=== PATIENT | female | born 1970 | race Caucasian/White ===

== ENCOUNTER 2017-08-28 16:55 | Emergency (ER) | payer BC, OTHER ==
[~2017-08-28] VITALS: Ht 154.9 cm; Wt 44.5 kg
[2017-08-28] MEDS ORDERED: TYLENOL WITH CODEINE PO (17:12)
[2017-08-28] MEDS ORDERED: AMLO5TAB2 PO (17:12)
[2017-08-28 18:18] LABS: BASOPHILS # (AUTO) 0.1 K/uL (0.0-8.0); BASOPHILS % (AUTO) 0.8 % (0.0-2.0); EOSINOPHILS # (AUTO) 0.2 K/uL (0.0-0.7); EOSINOPHILS % (AUTO) 2.6 % (0.0-7.0); HEMOGLOBIN 14.4 G/DL (12.0-16.0); LYMPHOCYTES # (AUTO) 2.9 K/UL (0.8-4.8); LYMPHOCYTES % (AUTO) 34.3 % (20.5-51.5); MEAN CORPUSCULAR HEMOGLOBIN 30.6 UUG (27.0-31.0); MEAN CORPUSCULAR HGB CONC 33 g/dL (32.0-37.0); MEAN CORPUSCULAR VOLUME 91.8 FL (81.0-99.0); MONOCYTES # (AUTO) 0.5 K/UL (0.1-1.30); MONOCYTES % (AUTO) 6.4 % (0.0-11.0); NEUTROPHILS # (AUTO) 4.8 K/UL (1.8-8.9); NEUTROPHILS % (AUTO) 55.9 % (38.5-71.5); PLATELET COUNT (AUTO) 282 K/UL (150-450); RED BLOOD CELL COUNT(AUTO) 4.69 MIL/UL (4.2-5.4); WHITE BLOOD COUNT (AUTO) 8.5 K/UL (4.0-11.2)
[2017-08-28 18:27] LABS: CREATININE 0.8 mg/dL (0.6-1.3); POTASSIUM 4.1 mmol/L (3.5-5.1)
[2017-08-28 18:55] LABS: BILIRUBIN,DIRECT 0.1 mg/dL (0.0-0.2); BILIRUBIN,TOTAL 0.4 mg/dL (0.2-1.0); TOTAL PROTEIN, SERUM 7.1 g/dL (6.4-8.2)
--- NOTE | 2017-08-28 19:17 | NUR ---
Assumed care of patient. no acute distress noted. All patient needs attended and met. no complaint of headache at this time. Will continue to monitor patient.
--- NOTE | 2017-08-28 19:52 | NUR ---
Patient discharged to home in stable conditon. Written and verbal after care instructions given. Patient verbalizes understanding of instructions. Ambulated from ER with stable gait. All belongings with patient. Peripheral IV removed prior to dischrage. Patient will be driven home in taxi. Ambulated from ER with stable gait.
[2017-08-28 19:59] VITALS: BP 127/80
== END 2017-08-28 20:00 | disposition home or self-care (01) ==
LOC: ER 16:56
DX: I10 Essential (primary) hypertension (principal); R51 Headache
CPT/HCPCS: 36415; 70030-TC; 70450; 71010; 84703; 85025; 93005; A4663

== ENCOUNTER 2018-02-03 19:37 | Emergency (ER) | payer BC, OTHER ==
[~2018-02-03] VITALS: Ht 175.3 cm; Wt 43.1 kg
[~2018-02-03 19:37] MED LIST: AMLO5TAB2 PO; TYLENOL WITH CODEINE PO
--- NOTE | 2018-02-03 20:07 | NUR ---
Patient ambulated to ER, reports was having anxiety attacks from high blood pressure, reports numbness and tingling on extremities.
[2018-02-03] MEDS ORDERED: LORAZEPAM 0.5 MG TABLET PO ONE (21:30)
[2018-02-03] MEDS ORDERED: LORAZEPAM 0.5 MG TABLET ONE (21:33)
--- NOTE | 2018-02-03 21:39 | NUR ---
Patient discharged to home in stable conditon with family and friend taking patient home. Written and verbal after care instructions given. Patient verbalizes understanding of instructions. Walked out of ER with steady gait. No distress noted
[2018-02-03 21:40] VITALS: BP 156/99
== END 2018-02-03 21:41 | disposition home or self-care (01) ==
LOC: ER 19:40
DX: F41.0 Panic disorder [episodic paroxysmal anxiety] (principal); I10 Essential (primary) hypertension; Z79.899 Other long term (current) drug therapy; Z79.891 Long term (current) use of opiate analgesic
CPT/HCPCS: 93005; A4663

== ENCOUNTER 2020-08-23 13:11 | Inpatient (IN) | payer OTHER ==
[~2020-08-23] VITALS: Ht 154.9 cm; Wt 54.4 kg
[~2020-08-23 13:11] MED LIST changes: -AMLO5TAB2 PO; +AMLO5TAB9 PO
[2020-08-23] MEDS ORDERED: IV NORMAL SALINE 1000 ML BAG IV ONE (13:30)
--- NOTE | 2020-08-23 13:30 | NUR ---
patient seen by
[2020-08-23] MEDS ORDERED: SWABABLE VALVE TRANSFER SET EA MC ONE (13:39)
[2020-08-23] MEDS ORDERED: IOHEXOL 300MG/ML 100 ML INFUS..BTL ONE (13:39)
[2020-08-23] MEDS ORDERED: METR500T PO (13:42)
[2020-08-23] MEDS ORDERED: LOSA50TA39 PO (13:42)
[2020-08-23] MEDS ORDERED: HYDR12.55 PO (13:42)
[2020-08-23] MEDS ORDERED: CIPR500T5 PO (13:42)
[2020-08-23] MEDS ORDERED: ONDANSETRON 4 MG/2 ML VIAL IV ONE (13:45)
[2020-08-23] MEDS ORDERED: MORPHINE SULFATE 4 MG/1 ML DISP.SYRIN IV ONE (13:45)
[2020-08-23] MEDS ORDERED: ONDANSETRON 4 MG/2 ML VIAL ONE (13:47)
[2020-08-23] MEDS ORDERED: MORPHINE SULFATE 4 MG/1 ML DISP.SYRIN ONE (13:47)
--- NOTE | 2020-08-23 13:54 | NUR ---
CALLED [facility] FOR [place]SP[place] [facility] [id number], TRIP #[id number].
[2020-08-23 13:57] LABS: BASOPHILS % (AUTO) 0.3 % (0.0-2.0); EOSINOPHILS # (AUTO) 0.1 K/uL (0.0-0.7); EOSINOPHILS % (AUTO) 1.1 % (0.0-7.0); HEMATOCRIT 38.5 % (31.2-41.9); LYMPHOCYTES # (AUTO) 2.5 K/uL (20.0-40.0); LYMPHOCYTES % (AUTO) 18.6 % (20.5-51.5); MEAN CORPUSCULAR HEMOGLOBIN 30.9 uug (24.7-32.8); MEAN CORPUSCULAR HGB CONC 34 g/dL (32.3-35.6); MEAN CORPUSCULAR VOLUME 91.3 fL (75.5-95.3); MONOCYTES % (AUTO) 7.2 % (0.0-11.0); NEUTROPHILS # (AUTO) 9.7 K/uL (1.8-8.9); NEUTROPHILS % (AUTO) 72.8 % (38.5-71.5); PLATELET COUNT (AUTO) 227 K/uL (179-408); RED BLOOD CELL COUNT(AUTO) 4.22 MIL/uL (3.63-4.92); WHITE BLOOD COUNT (AUTO) 13.3 K/uL (3.8-11.8)
[2020-08-23 13:58] LABS: CREATININE 0.9 mg/dL (0.6-1.3); POTASSIUM 3.4 mmol/L (3.5-5.1)
[2020-08-23 14:04] LABS: BILIRUBIN,DIRECT 0.2 mg/dL (0.0-0.2); BILIRUBIN,TOTAL 0.8 mg/dL (0.2-1.0); TOTAL PROTEIN, SERUM 6.7 g/dL (6.4-8.2)
--- NOTE | 2020-08-23 14:15 | NUR ---
[facility] called for admission per Dr. Yeager request. Called M/S floor called for bed assignment.
--- NOTE | 2020-08-23 14:30 | NUR ---
Dr. Yeager spoke with Dr. Arvizu via telephone regarding admission.
[2020-08-23] MEDS ORDERED: PIPERACILLIN SODIUM/TAZOBACTAM 3.375 G in IV DEXTROSE 5% 50 ML IV ONE (14:45)
[2020-08-23] MEDS ORDERED: HYDROMORPHONE 1 MG/1 ML DISP.SYRIN IV ONE ×3 (14:45→18:45)
[2020-08-23] MEDS ORDERED: HYDROMORPHONE 1 MG/1 ML DISP.SYRIN ONE ×2 (14:48→18:44)
[2020-08-23] MEDS ORDERED: PIPERACILLIN/TAZOBACTAM/D5W 50 ML IV ONE (14:53)
--- NOTE | 2020-08-23 16:29 | NUR ---
ambulance services to take pt. to [facility] for CT abd, and pelvis. Report given to Stevenson rosenberg. staff pt's vitals stable.128/68, rr 14 97.8. saturation of 97% on RA. 92HR.
--- NOTE | 2020-08-23 18:19 | NUR ---
patient back from [facility] radiology. pt stable.
--- NOTE | 2020-08-23 19:04 | NUR ---
bedside report given to rn. Marcus all information endorse for continuity of care.
--- NOTE | 2020-08-23 19:10 | NUR ---
Report received from Nely SANTILLAN. Pt is in room at this time, verbalies that the medication is working, but there still is a 3-4/10 pain on her LLQ of abdomen. Pt is being admitted, all belongings noted and accounted for, changed into hospital gown. Kept comfortable in bed with warm blankets. Will monitor until floor is ready to take patient.
--- NOTE | 2020-08-23 19:15 | NUR ---
Called 3rd floor, RN taking patient will call me back after their shift change report.
--- NOTE | 2020-08-23 19:36 | NUR ---
Report given to August SANTILLAN.
[2020-08-23] MEDS ORDERED: MAGNESIUM HYDROXIDE 30 ML LIQUID UDC PO PRN (19:45)
[2020-08-23] MEDS ORDERED: ONDANSETRON 4 MG/2 ML VIAL IV PRN (19:45)
[2020-08-23] MEDS ORDERED: Z GUARD REMEDY PASTE 57 GM TUBE TOP PRN (19:45)
--- NOTE | 2020-08-23 20:00 | NUR ---
Pt was transported by TYRELL Watters via [employer]. Came here for L. lower quadrant abdominal pain. Pt is AAOX4, c/o pain on the left lower quadrant, will assess and check if PRN pain medication is available. Denies any acute distress/SOB. Denies any active bleeding, N/V. Vitals stable on room air. Pt on NPO and will start on Zosyn. LFA IV is intact with D5 1/2 NS running at 125cc. Skin is intact. All belonging with patient. Safety measures in place. Call light within reach. Will continue with the plan of care.
--- NOTE | 2020-08-23 20:00 | NUR ---
Pt transported to Room 302, warm handoff to RN and BANK OPERATIONS OFFICER assigned. Pt in stable condition during transfer and upon arrival. All belongings with patient.
[2020-08-23 20:15] VITALS: BP 131/96
[2020-08-23] MEDS: IV D5 1/2 NS 1000 ML 1,000 ML IV PRN (21:09)
[2020-08-23] MEDS: PIPERACILLIN SODIUM/TAZOBACTAM 3.37 G in IV DEXTROSE 5% 100 ML IV SCH (21:09)
[2020-08-23] MEDS: HYDROCODONE/APAP 5-325MG TABLET PO PRN (23:25)
[2020-08-24] MEDS ORDERED: PIPERACILLIN SODIUM/TAZOBACTAM 3.375 G in IV DEXTROSE 5% 50 ML IV SCH ×2
[2020-08-24] MEDS: MORPHINE SULFATE 2 MG/1 ML DISP.SYRIN IV PRN ×3 (02:56→20:39)
[2020-08-24] MEDS: PIPERACILLIN SODIUM/TAZOBACTAM 3.37 G in IV DEXTROSE 5% 100 ML IV SCH ×3 (05:09→22:04)
[2020-08-24 06:05] LABS: BASOPHILS % (AUTO) 0.3 % (0.0-2.0); EOSINOPHILS # (AUTO) 0.1 K/uL (0.0-0.7); HEMATOCRIT 36.2 % (31.2-41.9); HEMOGLOBIN 12.2 g/dL (10.9-14.3); LYMPHOCYTES # (AUTO) 1.9 K/uL (20.0-40.0); LYMPHOCYTES % (AUTO) 17.6 % (20.5-51.5); MEAN CORPUSCULAR HEMOGLOBIN 30.7 uug (24.7-32.8); MEAN CORPUSCULAR HGB CONC 34 g/dL (32.3-35.6); MONOCYTES % (AUTO) 9.1 % (0.0-11.0); NEUTROPHILS # (AUTO) 7.9 K/uL (1.8-8.9); PLATELET COUNT (AUTO) 205 K/uL (179-408); RED BLOOD CELL COUNT(AUTO) 3.98 MIL/uL (3.63-4.92)
[2020-08-24 06:14] LABS: CREATININE 0.9 mg/dL (0.6-1.3); MAGNESIUM 2.1 mg/dL (1.8-2.4); PHOSPHOROUS 3.4 mg/dL (2.5-4.9); POTASSIUM 3.2 mmol/L (3.5-5.1)
[2020-08-24 06:19] VITALS: BP 120/68
--- NOTE | 2020-08-24 06:25 | NUR ---
Pt slept intermittently through the night. Pt denies any acute distress/SOB. Pt c/o /10 left lower quadrant abdominal pain. Denies any rectal bleeding, N/V. Will give prescribed PRN pain medication. V/S stable on room air. IV intact with Zosyn running at 25cc. Comfort care and needs attended. Pain managed effectively. Safety measures in place. Bed low and locked in position. Call light within reach. Will endorse to the oncoming nurse accordingly.
[2020-08-24 06:26] LABS: THYROID STIMULATING HORMONE 1.129 mIU/mL (0.358-3.740)
[2020-08-24 08:00] VITALS: BP 116/64
[2020-08-24] MEDS: PANTOPRAZOLE SODIUM 40 MG VIAL IV SCH (08:43)
[2020-08-24] MEDS ORDERED: POTASSIUM CHLORIDE 50 ML IV SCH (09:45)
[2020-08-24] MEDS ORDERED: POTASSIUM CHLORIDE 20 MEQ TAB.PRT.SR PO ONE ×2 (10:00)
[2020-08-24] MEDS: IV D5 1/2 NS 1000 ML 1,000 ML IV PRN (11:11)
[2020-08-24 11:44] VITALS: BP 117/78
[2020-08-24] MEDS ORDERED: SIMETHICONE 40 MG/0.6 ML, 30ML BOTTLE PO PRN (14:30)
[2020-08-24] MEDS ORDERED: SIMETHICONE 80 MG TAB.CHEW PO PRN (15:15)
[2020-08-24 15:43] VITALS: BP 138/87
--- NOTE | 2020-08-24 20:00 | NUR ---
Received patient sitting in bed. AAOx4. No s/s of acute distress. Pt is on RA and denies SOB. C/o abd pain, will follow up with available medications. Pt stated they had one instance of rectal bleeding after po medications, will continue to monitor. Left FA IV patent and intact infusing ordered fluids. Safety precautions intact and will continue to monitor.
[2020-08-24 20:06] VITALS: BP 130/92
[2020-08-24] MEDS: HYDROCODONE/APAP 5-325MG TABLET PO PRN (22:15)
[2020-08-25] MEDS: IV D5 1/2 NS 1000 ML 1,000 ML IV PRN (00:30)
[2020-08-25] MEDS: ACETAMINOPHEN 325 MG TABLET PO PRN ×2 (02:24→08:36)
[2020-08-25 04:06] VITALS: BP 134/92
[2020-08-25] MEDS: PIPERACILLIN SODIUM/TAZOBACTAM 3.37 G in IV DEXTROSE 5% 100 ML IV SCH ×2 (06:01→13:02)
[2020-08-25 06:17] LABS: BASOPHILS % (AUTO) 0.3 % (0.0-2.0); EOSINOPHILS # (AUTO) 0.2 K/uL (0.0-0.7); EOSINOPHILS % (AUTO) 2.2 % (0.0-7.0); HEMOGLOBIN 11.7 g/dL (10.9-14.3); LYMPHOCYTES # (AUTO) 2.4 K/uL (20.0-40.0); LYMPHOCYTES % (AUTO) 28.7 % (20.5-51.5); MEAN CORPUSCULAR HEMOGLOBIN 31.1 uug (24.7-32.8); MEAN CORPUSCULAR HGB CONC 34 g/dL (32.3-35.6); MEAN CORPUSCULAR VOLUME 90.8 fL (75.5-95.3); MONOCYTES # (AUTO) 0.7 K/uL (2.0-10.0); MONOCYTES % (AUTO) 8.6 % (0.0-11.0); NEUTROPHILS % (AUTO) 60.2 % (38.5-71.5); PLATELET COUNT (AUTO) 204 K/uL (179-408); RED BLOOD CELL COUNT(AUTO) 3.75 MIL/uL (3.63-4.92); WHITE BLOOD COUNT (AUTO) 8.3 K/uL (3.8-11.8)
[2020-08-25 06:44] LABS: CREATININE 0.9 mg/dL (0.6-1.3); MAGNESIUM 1.9 mg/dL (1.8-2.4); PHOSPHOROUS 3.1 mg/dL (2.5-4.9); POTASSIUM 3.3 mmol/L (3.5-5.1)
[2020-08-25] MEDS: PANTOPRAZOLE SODIUM 40 MG VIAL IV SCH (08:08)
[2020-08-25] MEDS ORDERED: BUTALB/ACETAMINOPHEN/CAFFEINE TABLET PO PRN (10:30)
[2020-08-25] MEDS ORDERED: POTASSIUM CHLORIDE 20 MEQ TAB.PRT.SR PO SCH (10:45)
[2020-08-25 11:37] VITALS: BP 132/94
[2020-08-25 16:00] VITALS: BP 135/90
--- NOTE | 2020-08-25 16:10 | NUR ---
dc orders received noted and carried out,dc heplock per md orders,dc instruction and education given to the pt,pt left the facility in stable condition with her friend in private car
== END 2020-08-25 16:15 | disposition home or self-care (01) | DRG 373 ==
LOC: ER 13:11 → MEDSURG3 19:49
PROVIDERS: ADMIT Student in an Organized Health Care Education/Training Program; ATTEND Student in an Organized Health Care Education/Training Program
DX: A04.9 Bacterial intestinal infection, unspecified (principal); E87.6 Hypokalemia; I10 Essential (primary) hypertension; R31.29 Other microscopic hematuria; F41.9 Anxiety disorder, unspecified
CPT/HCPCS: 36415; 83605; 83735; 84100; 84443; 85025; 85730; 87040; C9113; G0378; J1170; J2270; J2405; J2543; J3490; J7030; J7060; Q9967

== ENCOUNTER 2022-10-03 12:18 | Emergency (ER) | payer BC, OTHER ==
[~2022-10-03] VITALS: Ht 154.9 cm; Wt 54.4 kg
[~2022-10-03 12:18] MED LIST changes: -AMLO5TAB9 PO; +CIPR500T5 PO; +HYDR12.55 PO; +LOSA50TA39 PO; +METR500T PO
--- NOTE | 2022-10-03 12:33 | NUR ---
Patient initially refused to answer questions while still on the certification engineer gurney. Then this patient immediately wanted to go to the bathroom as soon as she was placed in ER bed 2A.
--- NOTE | 2022-10-03 12:38 | NUR ---
Patient is still in the bathroom at this time.
[2022-10-03] MEDS ORDERED: HALOPERIDOL LACTATE 5 MG/1 ML VIAL IV ONE (12:45)
[2022-10-03] MEDS ORDERED: MORPHINE SULFATE 4 MG/1 ML DISP.SYRIN IV ONE (12:45)
[2022-10-03] MEDS ORDERED: HALOPERIDOL LACTATE 5 MG/1 ML VIAL ONE (12:49)
[2022-10-03] MEDS ORDERED: MORPHINE SULFATE 4 MG/1 ML DISP.SYRIN ONE (12:50)
[2022-10-03] MEDS ORDERED: MAGNESIUM CITRATE 296 ML BOTTLE PO ONE (13:00)
[2022-10-03 13:06] LABS: HEMATOCRIT 43.1 % (31.2-41.9); MEAN CORPUSCULAR HEMOGLOBIN 31.1 uug (24.7-32.8); MEAN CORPUSCULAR VOLUME 92.4 fL (75.5-95.3); PLATELET COUNT (AUTO) 331 K/uL (179-408)
--- NOTE | 2022-10-03 13:11 | NUR ---
notified re: "Magnesium citrate is out of stock."
--- NOTE | 2022-10-03 13:13 | NUR ---
After a large loose BM (brown stool), patient said that she feels a "little better", MD notified.
[2022-10-03 13:24] LABS: BILIRUBIN,TOTAL 0.8 mg/dL (0.2-1.0); POTASSIUM 3.6 mmol/L (3.5-5.1); TOTAL PROTEIN, SERUM 7.3 g/dL (6.4-8.2)
--- NOTE | 2022-10-03 13:26 | NUR ---
Patient is now resting comfortably on gurney with eyes closed. PATIENT IS PAIN FREE AT THIS TIME.
--- NOTE | 2022-10-03 13:49 | NUR ---
Patient's son is at bedside. Patient's spouse was updated via phone. Patient said, "I feel so much better." MD notified.
[2022-10-03] MEDS ORDERED: POLY119P2 PO (14:22)
--- NOTE | 2022-10-03 14:34 | NUR ---
IV removed. Catheter intact and site benign. Pressure and 4x4 gauze applied to site. No bleeding noted. Patient discharged to home in stable condition with steady gait. Written and verbal after care instructions given to patient and adult son. Patient and family verbalized understanding and compliance of instructions. Copies of all test's results were given to patient and family. Stressed follow up primary doctor and GI doctor or return to ER for worsening s/s. Patient verbalized that she is pain-free at this time and wanted to rest in her own bedroom.
== END 2022-10-03 14:34 | disposition home or self-care (01) ==
LOC: ER 12:18
DX: R10.32 Left lower quadrant pain (principal); I10 Essential (primary) hypertension; F41.9 Anxiety disorder, unspecified; Z87.19 Personal history of other diseases of the digestive system; Z88.8 Allergy status to other drugs, medicaments and biological substances; Z91.010 Allergy to peanuts
CPT/HCPCS: 99285; 96374; 80053; 83690; 85025; 86140; 84484; 84702; 93005; J1630; 36415; A4663; J2270